=== PATIENT | female | born 1940 | race Caucasian/White ===

== ENCOUNTER → 2017-01-02 08:44 | Outpatient (CLI) | payer MEDICARE ==
[~2017-01-02] VITALS: Ht 152.4 cm; Wt 70.0 kg
--- NOTE | ~2017-01-02 | HEMODYNAMI ---
PATIENT:ROCK DURON MEDICAL RECORD: [id number] : 44 LOCATION:D.CAT ADMISSION DATE: 01/02/17 Generatedon:01/02/201712:45 Patient name: ROCK DURON Patient #: [id number] SSN: : [id number] Date of study: 01/02/2017 Page: Of Hemodynamic Procedure Report Patient Data Patient Demographics Procedure consent was obtained First Name: ROCK Gender: Female Last Name: OLIVERIO : 1940 [facility] Initial: CAROLE Age: 76 year(s) Patient #: [id number] Race: Additional ID: [id number] Contact details Address: [address] State: [place] City: [place] Zip code: [address] Past Medical History Allergies Allergen Reaction Date Comments Reported Penicillins 08/15/2014 Other allergy 08/15/2014 phenergan Morphine 08/15/2014 Other allergy 08/15/2014 dilaudid Other allergy 08/15/2014 macrobid, levaquin Other allergy 01/02/2017 Diluadid, Macrobid, Levaqin, Morphine, Phenergan Admission Admission Data Admission Date: 01/02/2017 Admission Time: 8:44 Procedure Procedure Types Cath Procedure Diagnostic Procedure [facility] w/Coronaries PCI Procedure Coronary Stent Initial Miscellaneous Procedures Moderate Sedation up to 15 minutes Procedure Description Procedure Date Procedure Date: 01/02/2017 Procedure Start Time: 12:28 Procedure End Time: 12:41 Procedure Staff Name Function Ever Diego MD Performing Physician Juan Lai RT Scrub Harry Valencia RN Nurse Amparo Wilcox RT Monitor Procedure Data Cath Procedure Fluoroscopy Diagnostic fluoroscopy Total fluoroscopy Time: 2 time: 2 min min Diagnostic fluoroscopy Total fluoroscopy dose: 298 dose: 298 mGy mGy Contrast Material Contrast Material Type Amount (ml) Isovue 300 77 Entry Location Entry Primary Successful Side Size Upsize Upsize Entry Closure Succes sful Closure Location (Fr) 1 (Fr) 2 (Fr) Remarks Device Remarks Femoral Right 5 Fr 6 Fr Exoseal artery Short Estimated blood loss: 10 ml Diagnostic catheters Device Type Used For End Catheter Placement Cordis 5Fr Pigtail Procedure Catheter (MP) Cordis 5Fr JL 4.0 Procedure Catheter (MP) Cordis 5Fr 3DRC Catheter Procedure (MP) Procedure Complications No complications Procedure Medications Medication Administration Route Dosage Oxygen NC 2 l/min Lidocaine 2% added to field 20 Heparin Flush Bag added to field 2 bags (1000units/500ml NS) 0.9% NaCl I.V. 100 ml/hr Zofran I.V. 4 mg Versed I.V. 1 mg Fentanyl I.V. 50 mcg Heparin Bolus I.V. 4000 units Versed I.V. 1 mg Fentanyl I.V. 50 mcg Hemodynamics Rest Heart Rate: 60 (bpm) Snapshots Pre Cath Intra NCS Post Cath Vital Signs Time Heart Resp SPO2 etCO2 LH3smyq NIBP (mmHg) Rhythm Pain Sedation Rate (ipm) (%) (mmHg) (mmHg) Status Level (bpm) 12:14:18 60 15 98 0 0 163/76(105) Paced 0 (11) 10(A) , No pain 12:18:45 60 16 99 0 0 155/69(98) Paced 0 (11) 10(A) , No pain 12:23:07 60 16 95 0 0 135/59(86) Paced 0 (11) 10(A) , No pain 12:27:29 60 15 97 0 0 133/58(83) Paced 0 (11) 10(A) , No pain 12:31:47 59 16 94 0 0 125/52(82) Paced 0 (11) 9(A) , No pain 12:36:07 61 16 95 0 0 119/54(81) Paced 0 (11) 9(A) , No pain 12:40:25 60 15 98 0 0 117/53(75) Paced 0 (11) 10(A) , No pain Medications Time Medication Route Dose Verified Delivered Reason Notes Effectiveness by by 12:12:07 Oxygen NC 2 Ever Mcdonald used for l/min Brandie Valencia RN procedure 12:12:14 Lidocaine 2% added 20ml Ever Curtis for local to vial Brandie Diego MD anesthetic field 12:12:19 Heparin Flush added 2 Ever Curtis used for Bag to bags Brandie Diego MD procedure (1000units/500ml field NS) 12:12:29 Zofran I.V. 4 mg Ever Mcdonald Per physician pt get s Brandie Valencia RN nauseated with sedation medications 12:12:29 0.9% NaCl I.V. 100 Ever Buffie Per physician ml/hr Brandie Valencia RN 12:27:15 Versed I.V. 1 mg Ever Buffie for sedation Brandie Valencia RN 12:27:22 Fentanyl I.V. 50 Ever Buffie for sedation mcg Brandie Valencia RN 12:34:11 Heparin Bolus I.V. 4000 Ever Buffie for verifi ed units Brandie Valencia RN anticoagulation with dr diego 12:36:14 Versed I.V. 1 mg Ever Buffie for sedation Brandie Valencia RN 12:36:18 Fentanyl I.V. 50 Ever Buffie for sedation mcg Brandie Valencia RN Procedure Log Time Note 11:30:07 Juan Lai RT(R) sent for patient. Start room use. 11:48:04 Diagnostic Cath status Elective 11:48:11 Time tracking: Regular hours 11:48:17 Plan of Care:Hemodynamics will remain stable., Cardiac rhythm will remain stable., Comfort level will be maintained., Respiratory function will remain adequate., Patient/ family verbilizes understanding of procedure., Procedure tolerated without complication., Recovers from procedure without complications.. 12:00:40 Patient received from Pre/Post Procedure Room to CCL 1 Alert and oriented. Tansferred to table in Supine position. 12:00:49 Warm blankets applied, and zayra hugger turned on for patient comfort. 12:00:50 Correct patient and procedure confirmed by team. 12:00:52 Signed procedure consent form obtained from patient. 12:01:06 H&P Date Dictated: 12/31/2016 Within 30 days and on chart., H&P Addendum completed by physician on day of procedure. (MUST COMPLETE FOR ALL OUTPATIENTS). 12:01:07 Pre-procedure instructions explained to patient. 12:01:08 Pre-op teaching completed and patient verbalized understanding. 12:01:10 Family in waiting room. 12:01:12 Patient NPO since Midnight. 12:01:47 Patient allergic to Other allergyDiluadid, Macrobid, Levaqin, Morphine, Phenergan 12:01:51 Is the patient allergic to Iodine/contrast media? No. 12::53 Is patient on blood thinner?Yes 12:01:56 ACC The patient was administered the following blood thiners within the last 24 hours: ACCPlavix 12:12:07 Oxygen 2 l/min NC was administered by Harry Valencia RN; used for procedure; 12:12:14 Lidocaine 2% 20ml vial added to field was administered by Ever Diego MD; for local anesthetic; 12:12:19 Heparin Flush Bag (1000units/500ml NS) 2 bags added to field was administered by Ever Diego MD; used for procedure; 12:12:29 Zofran 4 mg I.V. was administered by Harry Valencia RN; Per physician; pt gets nauseated with sedation medications 12:12:29 0.9% NaCl 100 ml/hr I.V. was administered by Harry Valencia RN; Per physician; 12:13:08 Vital chart was started 12:15:31 Previous problem with sedation/anesthesia? Yes hard to wake up 12:15:35 Snore? Yes 12:15:37 Sleep apnea? No 12:15:45 Dentures? No ? 12:15:56 IV patent on arrival in left wrist with 0.9% NaCl at [facility]. 12:16:03 Lab results completed and on chart. 12:16:08 Right groin area was prepped with chlora-prep and draped in sterile fashion 12:16:09 Alarms reviewed by R. N. 12:16:10 Sharps counted by scrub and verified by R.N. 12:16:11 Physician paged 12:16:17 ECG and BP/O2 sat monitors applied to patient. 12:16:21 Baseline sample Acquired. 12:16:27 Rhythm: paced 12:16:28 Full Disclosure recording started 12:25:49 Zero performed for pressure channel P1 12::22 Zero performed for pressure channel P1 12::41 Physician arrived 12::42 --------ALL STOP TIME OUT------ 12::42 Final Timeout: patient, procedure, and site verified with staff and physician. All members of the team are in agreement. 12:26:45 Right groin site verified by team. 12::51 Sedation plan: IV Moderate Sedation Versed, Fentanyl 12::55 Physical assessment completed. ASA score P 2 - A patient with mild systemic disease as per Ever Diego MD. 12:27:02 Use device set Femoral Dx 12:27:04 Acist Syringe opened to sterile field. 12:27:04 Bag Decanter opened to sterile field. 12:27:04 Medline Cath Pack opened to sterile field. 12:27:06 Terumo 5Fr [place] Sheath opened to sterile field. 12:27:07 St Dino 260cm J .035 wire opened to sterile field. 12:27:09 Acist Hand Control opened to sterile field. 12:27:09 Acist Manifold opened to sterile field. 12:27:10 Diagnostic Infinity 5Fr Multipack catheter opened to sterile field. 12::10 Tegaderm 4 x 4 opened to sterile field. 12::15 Versed 1 mg I.V. was administered by Harry Valencia RN; for sedation; 12::22 Fentanyl 50 mcg I.V. was administered by Harry Valencia RN; for sedation; 12::15 Procedure started. 12::51 Local anesthetic to right femoral artery with Lidocaine 2% by Ever Diego MD.INITIAL ACCESS ONLY 12:29:02 A 5 Fr sheath was inserted into the Right Femoral artery 12:29:43 A Cordis 5Fr Pigtail Catheter (MP) was advanced over the wire and used for Procedure. 12:29:54 EF : 50 % 12:29:57 Catheter removed. 12:31:51 A Cordis 5Fr JL 4.0 Catheter (MP) was advanced over the wire and used for Procedure. 12:31:54 LCA angiography performed. 12:31:56 Catheter removed. 12:32:05 A Cordis 5Fr 3DRC Catheter (MP) was advanced over the wire and used for Procedure. 12:32:13 RCA angiography performed. 12:32:14 Catheter removed. 12:32:25 Terumo 6Fr [place] Sheath opened to sterile field. 12:32:26 Merit BasixCompak Inflation Kit opened to sterile field. 12:32:28 [place] Whisper J 300cm 0.014 guide wire opened to sterile field. 12:32:29 [place] IVUS Catheter opened to sterile field. 12:32:41 Sheath upsized to a 6 Fr Short. 12:32:55 Cordis 6FR XBLAD 3.5 guide catheter opened to sterile field. 12:33:19 6 Fr XBLAD 3.5 guide catheter was inserted over the wire 12:34:11 Heparin Bolus 4000 units I.V. was administered by Harry Valencia RN; for anticoagulation; verified with dr diego 12:36:14 Versed 1 mg I.V. was administered by Harry Valencia RN; for sedation; 12:36:18 Fentanyl 50 mcg I.V. was administered by Harry Valencia RN; for sedation; 12:37:08 IVUS catheter advanced over wire. 12:37:10 IVUS catheter removed over wire. 12:38:35 Inflation Number: 1 A Glen OTW 3.5 x 15 stent was prepped and advanced across the Prox LAD. The stent was deployed at 13 KINSEY for 0:05 (min:sec). 12:38:50 Wire advanced across lesion. 12:38:53 Wire removed. 12:38:54 Guide catheter removed. 12:39:07 Cordis 6Fr Exoseal opened to sterile field. 12:39:14 Sheath removed intact; hemostasis achieved with Exoseal to the Right Femoral artery. 12:39:17 Procedure ended.(Physican Out) 12:39:29 Fluoroscopy time 02.00 minutes. 12:39:34 Fluoroscopy dose: 298 mGy 12:39:34 Flurop Dose total: 298 12:39:39 Contrast amount:Isovue 300 77ml. 12:39:41 Sharps counted by scrub and verified by R.N. 12:39:44 Insertion/operative site no bleeding no hematoma. 12:39:49 Post right femoral artery:stable 12:39:55 Post-procedure physical assessment completed. ASA score P 2 - A patient with mild systemic disease as per Ever Diego MD. 12:40:01 Post procedure rhythm: sinus rhythm 12:40:04 Estimated blood loss: 10 ml 12:40:08 Post procedure instruction explained to patient.Patient verbalizes understanding. 12:41:21 Procedure type changed to Cath procedure, Diagnostic procedure, LHC, LHC w/Coronaries, PCI procedure, Coronary Stent Initial, Miscellaneous Procedures, Moderate Sedation up to 15 minutes 12:41:23 Procedure and supply charges have been captured, reviewed, submitted and are correct. 12:41:44 Procedure Complication : No complications 12:41:48 Vital chart was stopped 12:41:49 See physician's report for complete and final results. 12:41:51 Report given to Pre/Post Procedure Room. 12:41:56 Patient transfered to Pre/Post Procedure Room with Stretcher. 12:41:59 Procedure ended. 12:41:59 Full Disclosure recording stopped 12:42:02 End room use (Document Last) 12:42:35 ACC-PCI Only Patient was given prescriptions, or instructed by Ever Diego MD to start/continue the following medications upon discharge: Plavix Intervention Summary Intervention Notes Time ActionType Lesion and Equipment Action# Pressure Duration Attributes Used 12:38:35 Place stent Prox LAD Damaso OTW 1 13 00:05 3.5 x 15 stent Device Usage Item Name Manufacture Quantity Catalog Hospital Part Current Minima l Lot# / Number Charge Number Stock Stock Serial# Code Acist Acist 1 [id number] 488185 045823 20 Syringe Medical Systems Inc Bag Microtek 1 [id number] 19608 534460 5 DecNeteven Medical Inc. Medline Cardinal 1 [id number] 495835 26277 671352 5 Cath Pack Health Terumo 5Fr Terumo 1 [id number] 686002 578849 425921 [address] St Dino 1 [id number] 476947 049046 018619 30 260cm J .035 wire Acist Hand Acist 1 29336 437269 622674 678154 5 Control Medical Systems Inc Acist Acist 1 80429 995003 381385 913858 5 Manifold Medical Systems Inc Diagnostic Cardinal 1 [id number] 298136 14623 903110 30 Infinity Health 5Fr Multipack catheter Tegaderm 4 3M 1 1626W 561284 093135 528149 5 x 4 Cordis 5Fr Cardinal 1 504874 5 Pigtail Health Catheter (MP) Cordis 5Fr Cardinal 1 710748 5 JL 4.0 Health Catheter (MP) Cordis 5Fr Cardinal 1 315494 5 3DRC Health Catheter (MP) Terumo 6Fr Terumo 1 [id number] 965588 941456 808535 40 [place] Sheath Merit Merit 1 [id number] 917106 691032 502378 15 Realvu Inc Medical Inflation Kit [place] 1 [id number] 552405 166157 341955 5 Whisper J Vascular 300cm 0.014 guide wire [place] 1 [id number] 750113 694572 796458 8 [place] IVUS Catheter Cordis 6FR Cardinal 1 [id number] 127434 916344 290095 10 XBLAD 3.5 Health guide catheter Damaso OTW Medtronic 1 [id number] 889802 0570234 387262 5 [id number] 3.5 x 15 stent Cordis 6Fr Cardinal 1 [id number] 501001 587756 615465 10 Smarter [employer] Solutions Signature Audit Early Stage Time Signature Unsigned Intra-Procedure 01/02/2017 Amparo Wilcox 12:45:10 PM RT(R) Signatures Monitor : Amparo Wilcox Signature : RT Date : Time : [address] [address]
[~2017-01-02 08:44] MED LIST: ASCORBIC ACID500 MG; BAYER CHEWABLE81 MG PO; CLEOCIN HCL300 MG PO; DIOVAN320 MG PO; EXFORGE 5-320 M1 TAB PO; FUROSEMIDE20 MG PO; KLOR-CON 1010 MEQ; LOPRESSOR25 MG PO; LOVAZA1 G; MAXZIDE-25 MG T1 TAB PO; NORCO 5/325 TAB1 TA1 PO; NORVASC5 MG PO; PLAVIX75 MG PO; XANAX0.5 MG; ZANTAC300 MG PO; ZOCOR40 MG PO
[2017-01-02 10:01] VITALS: BP 150/71; Ht 152.4 cm; Wt 70.0 kg
[2017-01-02 10:29] LABS: BASOPHILS 0.5 % (0-2); EOSINOPHILS 2.7 % (0-7); HEMATOCRIT 38.7 % (36.0-48.0); HEMOGLOBIN 12.7 g/dL (12-16); IMMATURE GRANULOCYTES 0.5 % (0-5); LYMPHOCYTES 28.9 % (15-50); MCH 30.5 pg (26.0-34.0); MCHC 32.8 g/dL (31.0-37.0); MCV 92.8 fL (80.0-100.0); MONOCYTES 7.7 % (2-11); NEUTROPHILS 59.7 % (40-80); PLATELET COUNT 179 10x3/uL (130-400); RBC 4.17 10x6/uL (4.00-5.40); RDW 13.2 % (11.5-14.5)
[2017-01-02 10:42] LABS: CALC OSMOLALITY 285 mosm/kg (275-300); CALCIUM 8.9 mg/dL (8.5-10.1); CHLORIDE - SERUM 106 mmol/L (98-107); CREATININE - SERUM 0.5 mg/dL (0.6-1.3); GLUCOSE 102 mg/dL (74-106); POTASSIUM - SERUM 3.8 mmol/L (3.5-5.1); SODIUM 143 mmol/L (136-145); UREA NITROGEN 15 mg/dL (7-18); eGFR NON AFRICAN AMERICAN > 90 mL/min (90-120)
--- NOTE | 2017-01-02 13:01 | NUR ---
1255 RECEIVED PT FROM SOLOIST DANCER.PT IS DROWSY, DENIES ANY C/O CHEST PAIN OR NAUSEA. PACED RHYTHM AT 60. RR EVEN AND UNLABORED ON O2 AT 2 LPM VIA NC. IV PATENT. PT INSTRUCTED TO KEEP HEAD FLAT TO PILLOW AND RIGHT LEG STRAIGHT. 6 FR EXOSEAL TO RIGHT GROIN IS CDI, AREA IS SOFT AND NONTENDER. PEDAL PULSES PALPABLE. PT DENIES NEEDS AT THIS TIME. CALL LIGHT IN REACH, NO FAMILY AT BEDSIDE.
--- NOTE | 2017-01-02 13:09 | NUR ---
1310 RIGHT GROIN DRESSING IS CDI, AREA IS SOFT AND NONTENDER. PEDAL PULSES PALPABLE. RHYTHM IS PACED AT 60, PT DENIES ANY C/O CHEST DISCOMFORT. CALL LIGHT IN REACH.
--- NOTE | 2017-01-02 13:21 | NUR ---
1125 DRESSING TO RIGHT GROIN IS CDI, AREA IS SOFT AND NON-TENDER. PT DENIES ANY C/O. CALL LIGHT IN REACH.
--- NOTE | 2017-01-02 13:57 | NUR ---
1340 PT DENIES ANY C/O. DRESSING RIGHT GROIN IS CDI, AREA IS SOFT AND NONTENDER. DENIES ANY C/O CHEST PAIN, VSS.
--- NOTE | 2017-01-02 14:31 | NUR ---
R/GROIN CDI NO BLEEDING NO HEMATOMA NOTED. VSS WITH CHEST PAIN DENIED. FAMILY AT SIDE
--- NOTE | 2017-01-02 15:00 | NUR ---
RESTING QUIETLY WITH NO DISTRESS NOTED VSS 6 FR EXOSEAL R/GROIN CDI NO BLEEDING NOTED
--- NOTE | 2017-01-02 15:47 | NUR ---
REPOSITIONED TO SITTING WITH HOB UP 45 DEGREES. 6 FR EXOSEAL R/GROIN REMAINS CDI WITH CHEST PAIN DENIED VSS. SANDWICH AND SODA TO BEDSIDE
--- NOTE | 2017-01-02 16:29 | NUR ---
PIV REMOVED WITH DRESSING APPLIED CHEST PAIN IS DENIED. 6 FR EXOSEAL R/GROIN CDI NO BLEEDING NO HEMATOMA NOTED. PATIENT UP TO GET DRESSED FOR DISCHARGE HOME
--- NOTE | 2017-01-02 16:43 | NUR ---
VERBAL AND WRITTEN DISCHARGE GONE OVER WITH PATIENT AND FAMILY ALL VERBALIZED UNDERSTANDING. 6 FR EXOSEAL R/GROIN CDI NO BLEEDING NO HEMATOMA NOTED. PATIENT LEFT VIA WC TO PARKING FOR FAMILY TO DRIVE HOME CHEST PAIN DENIED WITH NO C/O
--- NOTE | 2017-01-07 13:54 | HP ---
PATIENT: ROCK DURON MEDICAL RECORD: [id number] ACCOUNT: [id number] LOCATION:[facility] : 44 ADMISSION DATE: 01/02/17 HISTORY AND PHYSICAL EXAMINATION PROBLEM LIST: 1. Angina. 2. Coronary artery disease. 3. Previous percutaneous transluminal coronary angioplasty stent. 4. Hypertension. 5. Hyperlipidemia. 6. Abnormal nuclear stress test. 7. Sick sinus syndrome. 8. Status post pacemaker. HISTORY OF PRESENT ILLNESS: The patient began having chest pain compatible with angina and underwent risk stratification with nuclear stress testing revealing reversible ischemia. She is now brought for cardiac catheterization. PHYSICAL EXAMINATION: HEAD, EYES, EARS, NOSE, AND THROAT: Benign. NECK: Supple. No jugular venous distention. Carotid upstroke plus two bilaterally without bruits. LUNGS: Overall clear to auscultation and percussion. HEART: Regular. Normal S1, normal S2. No S3, no S4. No murmurs. BONES, JOINTS, EXTREMITIES: No clubbing, cyanosis, or edema. OVERALL IMPRESSION: Anginal symptomatology with abnormal nuclear stress test. Most likely she has recurrent hemodynamically significant coronary artery disease. Will proceed with coronary angiography. PARKER DALE MD at 1354 CC: [id number] DICTATION DATE: 01/02/17 0800 LOADING UNIT TOOL SETTER: NELSON 01/03/17 0653 DEP CLI 01/02/17 [facility] [address] [place] [address]
--- NOTE | 2017-01-09 11:24 | OP ---
PATIENT NAME: ROCK DURON MEDICAL RECORD: [id number] :44 LOCATION:D.CAT ADMISSION DATE: SURGEON: PARKER DALE MD DATE OF OPERATION: 01/02/2017 PROCEDURES: 1. PTCA stent LAD. 2. Intravascular ultrasound of the LAD. 3. Left heart catheterization. 4. Selective coronary angiography. 5. Left ventriculogram. INDICATION: Angina and coronary artery disease. PROCEDURE IN DETAIL: After informed consent was obtained and after a detailed explanation of the risks, benefits as well as alternative therapies, the patient elected to proceed with angiogram and angioplasty. The right femoral area was prepped and draped in normal sterile fashion. The right femoral artery was cannulated via modified Seldinger technique with placement of 6-Bengali sheath. All catheters exchanged through this sheath. FINDINGS: Left ventriculogram was performed in standard 30-degree HARVEY view, reveals good cardiac wall motion throughout all segments. Overall ejection fraction estimated at 60%. SELECTIVE CORONARY ANGIOGRAPHY: 1. Left main showed no significant angiographic disease. 2. Left anterior descending has greater than 70% stenosis proximally confirmed by intravascular ultrasound. 3. Left circumflex shows moderate irregularities, but no flow-limiting stenosis. 4. Right coronary has moderate irregularities, but no flow-limiting stenosis. PTCA STENT OF THE LAD: The stent used is a 3.5 x 15 mm Damaso taken to 13 atmospheres. Result was 0% residual stenosis. OVERALL IMPRESSION: Successful percutaneous transluminal coronary angioplasty stent of the left anterior descending going from greater than 70% initial stenosis confirmed by intravascular ultrasound to 0% residual stenosis. TRANSINT:[id number] Voice Confirmation ID: [id number] DOCUMENT ID: [id number] PARKER DALE MD at 1124 CC: [id number] DICTATION DATE: 01/07/17 1707 CONCRETE JOURNEYMAN: 01/08/17 0121 [facility] CLI 01/02/17 [place] [id number]
== END | disposition home or self-care (01) ==
LOC: D.CATH 08:44
PROVIDERS: Internal Medicine Interventional Cardiology
DX: I25.119 Atherosclerotic heart disease of native coronary artery with unspecified angina pectoris (principal); Z95.5 Presence of coronary angioplasty implant and graft; I10 Essential (primary) hypertension; E78.5 Hyperlipidemia, unspecified; I49.5 Sick sinus syndrome; Z95.0 Presence of cardiac pacemaker; Z01.812 Encounter for preprocedural laboratory examination